=== PATIENT | male | born 1995 | race Caucasian/White ===

== ENCOUNTER → 2020-08-22 | Outpatient (CLI) | payer BC | LOC: LAB 14:53 | PROVIDERS: ATTEND Physician Assistant | DX: R79.89 Other specified abnormal findings of blood chemistry (principal) | CPT/HCPCS: 36415; 84484 ==

== ENCOUNTER 2021-08-04 16:20 | Emergency (ER) | payer BC ==
[~2021-08-04] VITALS: Ht 200.7 cm; Wt 84.0 kg
[2021-08-04] MEDS ORDERED: KETOROLAC 15 MG/ML VIAL. IVP ONE (17:00)
--- NOTE | 2021-08-04 17:12 | PHYS DOC ---
Past History Past Surgical History: No Surgical History (BRANDEE RM MD) General Adult EDM: Chief Complaint: CHEST PAIN HPI: HPI: Patient is a 25-year-old male coming in for right-sided chest pain that he states radiates to his right arm and his back. Patient was playing basketball when symptoms started. Unable to explain what motions he was doing at the time of the pain starting. Patient states that he was initially very mild and he continued playing. Patient states that over the past 4 hours the pain has gotten more intense, but states is still dull pain. Patient denies any paresthesias or numbness in his arm. Patient denies any medical or surgical history. Denies any tobacco, alcohol, or drug use. Patient states the pain is not worse with movement or palpation, states it is worse with taking a deep breath. (BRANDEE RM MD) Review of Systems: Review of Systems: All other systems within normal limits except for as noted in the HPI (BRANDEE RM MD) Current Medications: Current Meds: Current Medications Medications (Trade) Dose Ordered Sig/Natty Start Time Stop Time Status Last Admin Dose Admin Ketorolac Tromethamine (Toradol 15mg Vial) 15 mg 1X ONCE 08/04/21 17:00 08/04/21 17:01 UNV (BRANDEE RM MD) Allergies: Allergies: Allergies Coded Allergies Type Severity Reaction Last Updated Verified No Known Drug Allergies 08/04/21 No (BRANDEE RM MD) Physical Exam: PE: Constitutional: Well developed, well nourished, no acute distress, non-toxic appearance. [] HENT: Normocephalic, atraumatic, bilateral external ears normal, nose normal. [] Eyes: PERRLA, conjunctiva normal, no discharge. [] Neck: No rigidity, supple, no stridor. [] Cardiovascular: Regular rate and rhythm, brisk cap refill, symmetric pulses [] Lungs & Thorax: Non labored symmetric respirations, no tachypnea or respiratory distress. Normal bilateral breath sounds [] Abdomen: Soft, nondistended. Skin: Warm, dry, no erythema, no rash. [] Back: Unremarkable Extremities: No deformities, range of motion grossly intact, no lower extremity edema [] Neurologic: Alert and oriented X 3, no focal deficits noted. [] Psychologic: Affect normal, judgement normal, mood normal. [] (BRANDEE RM MD) Current Patient Data: Vital Signs: Vital Signs Date Time Temp Pulse Resp B/P (MAP) Pulse Ox O2 Delivery O2 Flow Rate FiO2 08/04/21 16:20 98.8 82 22 132/68 (89) 99 (BRANDEE RM MD) EKG: EKG: J-point elevation in lead V2 sinus rhythm, heart rate 60 bpm, normal axis, no ST elevation or depression, no ectopy. [] (BRANDEE RM MD) Radiology/Procedures: Radiology/Procedures: [][place] [address] IMAGING REPORT Signed PATIENT: KRISTEN BANEGAS ACCOUNT: [id number] : 1995 LOCATION: ER AGE: 25 SEX: M EXAM STATUS: REG ER ORD. PHYSICIAN: BRANDEE RM MD REASON: right chest pain, upper back pain, hx covid x 1 yr ago PROCEDURE: CHEST AP ONLY XR CHEST 1V History: Right chest pain, upper back pain. History of Covid one year ago. Comparison: None. Technique: Portable AP radiograph of the chest. Findings: The lungs are adequately inflated. There is no focal airspace consolidation, pleural effusion or pneumothorax. Cardiomediastinal silhouette and pulmonary vasculature are within normal limits. Osseous structures and soft tissues are unremarkable. Impression: 1. No acute cardiopulmonary process. Electronically signed by: Armando Magaña MD (08/04/2021 5:14 PM) [id number] DICTATED AND SIGNED BY: ARMANDO MAGAÑA MD DATE: 08/04/21 1710 CC: BRANDEE RM MD; GONZALO HERNANDEZ ~MTH0 0 (BRANDEE RM MD) Radiology/Procedures: IMAGING REPORT Signed PATIENT: KRISTEN BANEGAS ACCOUNT: [id number] : 1995 LOCATION: ER AGE: 25 SEX: M EXAM STATUS: REG ER ORD. PHYSICIAN: BRANDEE RM MD REASON: right chest pain, upper back pain, hx covid x 1 yr ago PROCEDURE: CHEST AP ONLY XR CHEST 1V History: Right chest pain, upper back pain. History of Covid one year ago. Comparison: None. Technique: Portable AP radiograph of the chest. Findings: The lungs are adequately inflated. There is no focal airspace consolidation, pleural effusion or pneumothorax. Cardiomediastinal silhouette and pulmonary vasculature are within normal limits. Osseous structures and soft tissues are unremarkable. Impression: 1. No acute cardiopulmonary process. Electronically signed by: Armando Magaña MD (08/04/2021 5:14 PM) [id number] DICTATED AND SIGNED BY: ARMANDO MAGAÑA MD DATE: 08/04/21 1710 CC: BRANDEE RM MD; GONZALO HERNANDEZ ~MTH0 [address] [address] IMAGING REPORT Signed PATIENT: KRISTNE BANEGAS ACCOUNT: [id number] : 1995 LOCATION: ER AGE: 25 SEX: M EXAM STATUS: REG ER ORD. PHYSICIAN: BRANDEE RM MD REASON: right chest pain, hx of covid - 75mls omni 350 PROCEDURE: CT ANGIOGRAPHY CHEST CTA Chest with contrast: Clinical History: Reason: right chest pain, hx of covid Shortness of breath. Axial helical images of the chest were obtained after the administration of 75 cc of IV Omni 350 and timed appropriately for a pulmonary arterial study. Conventional axial reconstruction was performed in addition to coronal, sagittal and bilateral oblique MIP (maximum intensity projection). This study was ordered to detect possible pulmonary embolism. There are no filling defects to suggest pulmonary embolism. The lungs and pleural margins are clear. There is no mediastinal or hilar lymphadenopathy. The thoracic aorta appears normal. Impression: 1. No evidence of pulmonary embolism. 2. No significant findings. PQRS Compliance Statement: One or more of the following individualized dose reduction techniques were utilized for this examination: 1. Automated exposure control 2. Adjustment of the mA and/or kV according to patient size 3. Use of iterative reconstruction technique Electronically signed by: Robi Mixon III, MD (08/04/2021 6:03 PM) [facility] DICTATED AND SIGNED BY: ROBI MIXON III, MD DATE: 08/04/21 1758 CC: BRANDEE RM MD; GONZALO HERNANDEZ ~MTH0 0 (ALEXANDRA THOMPSON MD) Heart Score: C/O Chest Pain: N/A Risk Factors: Risk Factors: DM, Current or recent (<one month) smoker, HTN, HLP, family history of CAD, obesity. Risk Scores: Score 0 - 3: 2.5% MACE over next 6 weeks - Discharge Home Score 4 - 6: 20.3% MACE over next 6 weeks - Admit for Clinical Observation Score 7 - 10: 72.7% MACE over next 6 weeks - Early Invasive Strategies (BRANDEE RM MD) Course & Med Decision Making: Course & Med Decision Making Pertinent Labs and Imaging studies reviewed. (See chart for details) No pneumonia on chest x-ray. Pending labs and CTA at shift change [] (BRANDEE RM MD) Dragon Disclaimer: Dragon Disclaimer: This electronic medical record was generated, in whole or in part, using a voice recognition dictation system. (BRANDEE RM MD) Departure Departure: Referrals: GONZALO HERNANDEZ (PCP) BRANDEE RM MD Aug 04, 2021 17:12 ALEXANDRA THOMPSON MD Aug 04, 2021 18:08
--- NOTE | 2021-08-04 17:16 | RAD ---
XR CHEST 1V History: Right chest pain, upper back pain. History of Covid one year ago. Comparison: None. Technique: Portable AP radiograph of the chest. Findings: The lungs are adequately inflated. There is no focal airspace consolidation, pleural effusion or pneu mothorax. Cardiomediastinal silhouette and pulmonary vasculature are within normal limits. Osseous st ructures and soft tissues are unremarkable. Impression: 1. No acute cardiopulmonary process. Electronically signed by: Armando Thomas MD (08/04/2021 5:14 PM) [id number]
[2021-08-04 17:28] LABS: BASO % 0 % (0-3); EOS # 0.1 x10^3/uL (0.0-0.7); EOS % 1 % (0-3); HEMATOCRIT 42.2 % (39.0-53.0); HEMOGLOBIN 14.3 g/dL (13.0-17.5); LYMPH # 1.4 x10^3/uL (1.0-4.8); LYMPH % 15 % (24-48); MEAN CORPUSCULAR HEMOGLOBIN 33 pg (25-35); MEAN CORPUSCULAR HGB CONC 34 g/dL (31-37); MEAN CORPUSCULAR VOLUME 96 fL (79-100); MONO # 0.7 x10^3/uL (0.0-1.1); MONO % 7 % (0-9); NEUT # 7.1 x10^3uL (1.8-7.7); NEUT % 76 % (31-73); PLATELET COUNT 148 x10^3/uL (140-400); RED BLOOD COUNT 4.39 x10^6/uL (4.30-5.70); RED CELL DISTRIBUTION WIDTH 12.6 % (11.5-14.5); WHITE BLOOD COUNT 9.4 x10^3/uL (4.0-11.0)
[2021-08-04] MEDS ORDERED: IOHEXOL 350 MG/ML 100 ML VIAL. IV ONE (17:30)
[2021-08-04 17:36] LABS: CALCIUM 9.6 mg/dL (8.5-10.1); CREATININE 1.2 mg/dL (0.7-1.3); POTASSIUM 4.3 mmol/L (3.5-5.1)
[2021-08-04 17:43] LABS: ALBUMIN 4.3 g/dL (3.4-5.0); ALBUMIN/GLOBULIN RATIO 1.4 (1.0-1.7); TOTAL BILIRUBIN 0.7 mg/dL (0.2-1.0); TOTAL PROTEIN 7.4 g/dL (6.4-8.2)
--- NOTE | 2021-08-04 18:05 | RAD ---
CTA Chest with contrast: Clinical History: Reason: right chest pain, hx of covid Shortness of breath. Axial helical images of the chest were obtained after the administration of 75 cc of IV Omni 350 and timed appropriately for a pulmonary arterial study. Conventional axial reconstruction was performed in addition to coronal, sagittal and bilateral oblique MIP (maximum intensity projection). This stud y was ordered to detect possible pulmonary embolism. There are no filling defects to suggest pulmonary embolism. The lungs and pleural margins are clear. There is no mediastinal or hilar lymphadenopathy. The thoracic aorta appears normal. Impression: 1. No evidence of pulmonary embolism. 2. No significant findings. PQRS Compliance Statement: One or more of the following individualized dose reduction techniques were utilized for this examinat ion: 1. Automated exposure control 2. Adjustment of the mA and/or kV according to patient size 3. Use of iterative reconstruction technique Electronically signed by: Ap Mercer III, MD (08/04/2021 6:03 PM) [facility]
[2021-08-04 18:30] VITALS: BP 127/63
--- NOTE | 2021-08-04 18:46 | EKG ---
[facility] ED [facility] [place] [id number] Test Date: 2021-08-04 Test Time: 16:26:34 Pat Name: KRISTEN BANEGAS Department: Room: Gender: M [employer]: [facility] : 1995 Requested By: BRANDEE RM Order Number: [id number] Reading MD: Telly Garcia MD Measurements Intervals [place] Rate: 69 P: 60 GA: 146 QRS: 49 QRSD: 106 T: 27 QT: 408 QTc: 439 Interpretive Statements SINUS RHYTHM [id number] Electronically Signed On 08-07-2021 11:11:53 CDT by Telly Garcia MD
== END 2021-08-04 18:45 | disposition home or self-care (01) ==
LOC: ER 16:20
DX: R07.89 Other chest pain (principal); U09.9 Post COVID-19 condition, unspecified
CPT/HCPCS: 36415; 71045; 71275; 80053; 84484; 85025; 85379; 93005; 96374; 99285; J1885; Q9967